=== PATIENT | male | born 1990 | race Two or more races ===

== ENCOUNTER 2018-10-20 13:03 | Emergency (ER) | payer OTHER ==
[2018-10-20 15:35] VITALS: BP 124/78
--- NOTE | 2018-10-20 16:34 | ED Physician Documentation ---
PD HPI UPPER EXT INJURY - Stated complaint Stated Complaint: ELBOW/KNEE PX - Chief complaint Chief Complaint: Ext Problem - History obtained from History obtained from: Patient - History of Present Illness Location: Right, Elbow Where injury occurred: Other (swimming) Timing - onset: Today - Additonal information Additional information: The patient is a 28-year-old right hand dominant male who complains of throbbing pain in his right elbow, waxing and waning for the past 2-3 weeks. He denies any specific injury, but does swim 4 days per week. Today while swimming he was bothered by the pain in his elbow. He denies having the pain currently. In addition to the right elbow, he also reports having pain in his right knee intermittently for more than one year. He has previously had an x-ray of the knee which was negative. The pain, when present, is always on the emir-medial aspect of the knee. When he swims he does the butterfly stroke, and has found that swimming seems to exacerbate the symptoms. Review of Systems Constitutional: denies: Fever Nose: denies: Congestion Cardiac: denies: Chest pain / pressure Respiratory: denies: Dyspnea, Cough GI: denies: Abdominal Pain, Vomiting Skin: denies: Rash Musculoskeletal: reports: Joint pain (Right elbow and right knee.). denies: Neck pain, Back pain Neurologic: denies: Focal weakness, Numbness, Headache PD PAST MEDICAL HISTORY - Past Medical History Past Medical History: No Cardiovascular: None Respiratory: None Neuro: None Endocrine/Autoimmune: None GI: None : None HEENT: None Psych: None Musculoskeletal: None Derm: None - Past Surgical History Past Surgical History: No - Allergies Allergies/Adverse Reactions: Allergies Allergy/AdvReac Type Severity Reaction Status Date / Time No Known Drug Allergies Allergy Verified 10/20/18 13:07 - Social History Does the pt smoke?: No Smoking Status: Never smoker Does the pt drink ETOH?: Yes Does the pt have substance abuse?: No - Immunizations Immunizations are current?: Yes - POLST Patient has POLST: No PD ED PE NORMAL - Vitals Vital signs reviewed: Yes (normal) - General General: Alert and oriented X 3, Well developed/nourished - HEENT HEENT: Atraumatic - Respiratory Respiratory: No respiratory distress - Back Back: No spinal TTP - Derm Derm: No rash - Extremities Extremities: No deformity, No edema, No calf tenderness / cord, Other (There is mild tenderness to palpation over the lateral epicondyle of the right elbow. There is no swelling or ecchymosis. He has full range of motion of the elbow against resistance. Distal neurovascular is intact. There is very mild tenderness to palpation over the anteromedial aspect of the right knee. There is no tenderness along the joint lines either medially or laterally, no tenderness in the popliteal fossa, nor over the patella. He has full flexion and extension of the knee. Distal neurovascular is intact. There is no ligamentous instability detected.) - Neuro Neuro: Alert and oriented X 3, No motor deficit, No sensory deficit Results - Vitals Vitals: Oxygen O2 Source Room air PD MEDICAL DECISION MAKING - ED course Complexity details: considered differential, d/w patient ED course: The patient's right elbow pain is most consistent with lateral epicondylitis. It is most likely a result of his swimming exercises, as is his right medial knee strain. Imaging studies are not clinically indicated. I discussed with the patient symptomatic treatment, outpatient follow-up, as well as potentially worrisome signs or symptoms that should prompt reevaluation in the emergency department. Departure - Departure Disposition: 01 Home, Self Care Clinical Impression: Strain of right knee Qualifiers: Encounter type: initial encounter Qualified Code(s): S86.911A - Strain of unspecified muscle(s) and tendon(s) at lower leg level, right leg, initial encounter Epicondylitis, lateral Qualifiers: Laterality: right Qualified Code(s): M77.11 - Lateral epicondylitis, right elbow Condition: Stable Instructions: ED Sprain Knee, ED Epicondylitis Lateral Elbow Follow-Up: STANISLAW Kelly [Provider Group] Comments: Apply ice pack to the sore areas intermittently for the next 2 or 3 days. You can use ibuprofen, up to 800 mg 3 times daily for its anti-inflammatory effect. Let pain be your guide to activity level. Follow-up with your primary physician within 2 weeks. Call to schedule appointment. Return to the emergency department if you develop increasing pain in your elbow or your knee, or otherwise worsening symptoms. Discharge Date/Time: 10/20/18 16:38
== END 2018-10-20 16:38 | disposition home or self-care (01) ==
LOC: ED 13:03
DX: S86.911A Strain of unspecified muscle(s) and tendon(s) at lower leg level, right leg, initial encounter (principal); X58.XXXA Exposure to other specified factors, initial encounter; Y93.11 Activity, swimming; M77.11 Lateral epicondylitis, right elbow
CPT/HCPCS: 99283

== ENCOUNTER 2019-03-04 18:00 | Outpatient (CLI) | payer OTHER | END 2019-03-04 18:01 | disposition critical access hospital (66) | LOC: EMS 18:00 | PROVIDERS: ATTEND Surgery | DX: S01.81XA Laceration without foreign body of other part of head, initial encounter (principal); W21.04XA Struck by golf ball, initial encounter; Y92.39 Other specified sports and athletic area as the place of occurrence of the external cause | CPT/HCPCS: A0425; A0429 ==

== ENCOUNTER 2019-03-04 18:16 | Emergency (ER) | payer OTHER ==
[2019-03-04] MEDS ORDERED: BUFFERED LIDOCAINE 10 ML SYRINGE SUBQ STA (18:24)
--- NOTE | 2019-03-04 18:25 | ED Physician Documentation ---
PD HPI HEAD INJURY - Stated complaint Stated Complaint: GOLF BALL VS HEAD (LACERATION) - Chief complaint Chief Complaint: Laceration - History obtained from History obtained from: Patient - History of Present Illness Mechanism of head injury: Blow (He was struck by a golf ball while golfing today. He has a laceration in the hairline above his forehead. He is up-to-date on tetanus. No headache, loss of consciousness. No other injuries.) Review of Systems Constitutional: reports: Reviewed and negative Nose: reports: Reviewed and negative Throat: reports: Reviewed and negative PD PAST MEDICAL HISTORY - Past Medical History Cardiovascular: None Respiratory: None Neuro: None Endocrine/Autoimmune: None GI: None : None HEENT: None Psych: None Musculoskeletal: None Derm: None - Past Surgical History Past Surgical History: No - Present Medications Home Medications: Ambulatory Orders Medication Instructions Recorded Confirmed Sertraline [Zoloft] 25 mg PO DAILY 03/04/19 03/04/19 - Allergies Allergies/Adverse Reactions: Allergies Allergy/AdvReac Type Severity Reaction Status Date / Time No Known Drug Allergies Allergy Verified 03/04/19 18:20 - Social History Does the pt smoke?: No Smoking Status: Never smoker Does the pt drink ETOH?: Yes Does the pt have substance abuse?: No - Immunizations Immunizations are current?: Yes - POLST Patient has POLST: No PD ED PE NORMAL - Vitals Vital signs reviewed: Yes - General General: Alert and oriented X 3, No acute distress - HEENT HEENT: PERRL, EOMI, Other (Just to the right of midline there is a 2 cm horizontal laceration above the hairline. No bony tenderness of the scalp.) - Neck Neck: Supple, no meningeal sign, No bony TTP - Neuro Neuro: Alert and oriented X 3, skills trainer 2-12 intact, No motor deficit, No sensory deficit, Normal speech - Psych Psych: Normal mood, Normal affect Results - Vitals Vitals: Vital Signs - 24 hr 03/04/19 03/04/19 18:18 18:24 Temperature 36.8 C Heart Rate 94 83 Respiratory 20 18 Rate Blood Pressure 137/90 H 125/82 H O2 Saturation 96 96 Oxygen O2 Source Room air Procedures - Laceration (location) scalp Length in cm: 1.5 Wound type: Linear Anesthesia: Lidocaine 1% Wound Preparation: Irrigated copiously NS Skin layer closure: Other (vicryl 5-0 x 3 interuppted) Other: Tetanus UTD Complexity: Simple Departure - Departure Disposition: 01 Home, Self Care Clinical Impression: Scalp laceration Qualifiers: Encounter type: initial encounter Qualified Code(s): S01.01XA - Laceration without foreign body of scalp, initial encounter Condition: Good Record reviewed to determine appropriate education?: Yes Instructions: ED Laceration Scalp Stitch Or Stap, ED Head Injury Closed Sleep [facility]
[2019-03-04 18:44] VITALS: BP 120/80
== END 2019-03-04 18:45 | disposition home or self-care (01) ==
LOC: EDUNIT# → ED 18:16
DX: S01.01XA Laceration without foreign body of scalp, initial encounter (principal); W21.04XA Struck by golf ball, initial encounter; Y93.53 Activity, golf
CPT/HCPCS: 12011; 99283

== ENCOUNTER 2019-04-27 08:46 | Outpatient (CLI) | payer OTHER ==
--- NOTE | 2019-04-27 10:45 | MRI Report ---
Reason: PAIN IN RT KNEE Procedure Date: 04/27/2019 Accession Number: [id number] / [id number] Procedure: MRI - Knee RT W/O CPT Code: Final Report FULL RESULT: EXAM: RIGHT KNEE MRI WITHOUT CONTRAST EXAM DATE: 04/27/2019 09:59 AM. CLINICAL HISTORY: Right knee pain. COMPARISON: None. TECHNIQUE: Multiplanar, multisequence T1-weighted and fluid-sensitive sequences of the knee without contrast. Other: None. FINDINGS: Some of the images are degraded due to patient-related motion artifact. Bones and articular cartilage: Small subcortical cysts and mild marrow edema at the median aspect of the tibial plateau. Articular cartilage is within normal limits. No acute fracture or bone lesions. Patella rob is present. Medial Meniscus: The medial meniscus is intact. Lateral Meniscus: The lateral meniscus is intact. Cruciate Ligaments: There is an approximate 9 x 4 x 6 mm ganglion within, and adjacent to the proximal aspect of the anterior cruciate ligament. The ACL fibers are intact. The posterior cruciate ligament is intact. Collateral Ligaments: The medial collateral and lateral collateral ligamentous structures are intact. Tendons: The quadriceps, patellar, semimembranosus, and popliteus tendons are unremarkable. Musculature: No edema or fatty atrophy. Other: No effusion. No popliteal cyst. No loose bodies. The medial and lateral retinacula are intact. The subcutaneous tissues and fat pads are unremarkable. IMPRESSION: 1. Small subcortical cysts and mild marrow edema at the median aspect of the tibial plateau. 2. No meniscal tear. 3. Small ganglion within, and adjacent to the proximal aspect of the anterior cruciate ligament. No ligament tear is seen. [facility]
== END 2019-04-27 08:47 | disposition home or self-care (01) ==
LOC: DI 08:46
PROVIDERS: ATTEND Family Medicine
DX: M25.561 Pain in right knee (principal); M25.861 Other specified joint disorders, right knee; M67.461 Ganglion, right knee